=== PATIENT | female | born 1990 | race Caucasian/White ===

== ENCOUNTER 2016-05-28 00:10 | Inpatient (IN) | payer OTHER ==
[~2016-05-28] VITALS: Ht 162.6 cm; Wt 75.7 kg
[~2016-05-28 00:10] MED LIST: FES300 PO; IBUP-1152 PO
[2016-05-28] MEDS: Misoprostol 25 mCg/0.25 Tablet VAGINAL SCH ×4 (08:57→20:35)
[2016-05-28] MEDS ORDERED: Lactated Ringer's 1,000 ML IV PRN (09:04)
[2016-05-28] MEDS ORDERED: Oxytocin 10 Unit/mL Inj IM PRN (09:05)
[2016-05-28] MEDS ORDERED: Sodium Chloride LOK Flush 10 mL Syringe IVFLUSH PRN (09:05)
[2016-05-28] MEDS ORDERED: Carboprost 250 mCg/mL Inj IM PRN (09:05)
[2016-05-28] MEDS ORDERED: Methylergonovine 0.2 mg/mL Inj IM PRN (09:05)
[2016-05-28] MEDS ORDERED: Hemorrhage Kit, Post Partum XX ONE ×2 (09:05→18:25)
[2016-05-28] MEDS ORDERED: Oxytocin 30 Units/500 mL LR 30 UNITS in IV Premix 1 EACH IV PRN (09:05)
[2016-05-28 09:25] LABS: Mean Corpuscular Hemoglobin 25.9 pg (27.0-35.0); Mean Corpuscular Volume 82.2 fL (81-100)
--- NOTE | 2016-05-28 10:58 | PCM.HPOB ---
Subjective Date of Service: May 28, 2016 Referring Provider: Admitting Physician: Eleanor Luevano MD Primary Care Physician: Eleanor Luevano MD Attending Physician: Eleanor Luevano MD Chief Complaint Post dates induction. History of Present History of Present Illness 40 and 5/7 weeks without onset of spontaneous labor. Request induction. Cervix is favorable. OB History: (3), Para, Term, (1), Living (1) Obstetrical Complications: None Past Medical History Obstetrical History: 18 min pushing with term vaginal delivery three years ago. During current has had hyperreflexia without preeclampsia. Hx Tobacco Use: No Smoking Status: Unknown if Ever Smoker Hx Alcohol Use: No Hx Substance Use: No Past Family History Living Arrangement: with Family Genetic Screening/Counseling Genetic Screening/Counseling: Unknown (Not found. Possibly not done.) Baby father-had child w defect: No Review of Systems Constitutional: Y: Change of appitite, Chills, Dizziness, Fever, Malaise, Other , Pain, Sweats, Weakness, Weight loss Eyes: Denies: Blurred Vision, Conjunctive Inflammation, Double Vision, Eyelid Inflammation, Other, Pain, Redness, Vision Changes ENT: Denies: Dental Problems, Dysphagia, Ear Discharge, Ear Pain, Hoarseness, Membranes Dry, Nasal Congestion, Nose Discharge, Nose Pain, Other, Throat Pain, Tinnitus, Ulcers/Sores in Mouth Cardiovascular: Denies: Chest Pain, Edema, Orthopnea, Other, Palpitations, SOB while laying flat Respiratory: Denies: Cough, Cough with bloody sputum, Other, Pleuritic Chest Pain, Pleuritic Chest Pain, SOB with Exertion, Sputum, Wheezing Gastrointestinal: Reports: Abdominal Pain, Denies: Black tarry stools, Blood in stool (red), Change in Appetite, Constipation, Diarrhea, Epigastric pain, Heartburn, Nausea, Other, Use of Laxatives, Vomiting Genitourinary: Denies: Anuria, Change in Frequency, Dysuria, Hematuria, Incontinence, Nocturia, Other, Retention Musculoskeletal: Denies: Back Pain, Deformity, Limitation of Function, Neck Pain, Other, Redness, Shoulder Pain, Swelling Skin/Breasts: Denies: Bruising, Discharge, Dry or Flakiness, Jaundice, Lesions , Masses, Mastalgia, Other, Rash, Scars, Ulcers Skin: Denies: Bruising, Dry or Flakiness, Jaundice, Lesions, Other, Rash, Scars , Ulcers Neurological: Denies: Change in Speech, Confusion, Dizziness, Incoordination, Numbness, Other, Seizures, Somnolence, Tremors, Weakness Psychologic: Denies: Agitation, Anxious, Apprehensive, Depression, Insomnia, Instability, Nervousness, Other Endocrine: Denies: Blood Glucose Review, Change in Appitite, Diaphoresis, Excessive Thirst, Intolerent to Heat/Cold, Other, Recent A1C, Urinating frequently Hematologic: Denies: Abnormal bleeding, Adenopathy, Bruising, Other Medications Home medications vitamins. Allergy Coded Allergies: Amoxicillin (Verified Allergy, 10/28/12) Exam Vital Signs Exam heart tones 130s -140s and reactive. Constitutional: Well-developed, Well-nourished, Normal habitus Lungs: Clear to Auscultation Heart: Regular Rate/Rhythm, No Murmurs/Rubs/Gallops Abdomen: Gravid Lymphatic: Normal: Neck Palpation of Nodes Extremities: No Edema Neurological/Psychiatric: Alert, Oriented X3, Cooperative Neuro: Reflexes 2+, Normal Speech Hyper reflexive DTR: RT Low Extremity, LT Low Extremity Gynecologic: Normal: Cervix (2cm, 70% effaced, -2 station, head well applied) Labs/Diagnostics Maternal Blood Type: O (negative) Hx Rho(D) Immune Globulin: No Group B Strep Results: Negative Previous Infant with GBS: No Rubella: Immune Additional Information Positive chlamydia treated. Repeat negative. OB Intrapartum Assessment/Plan Assessment Post dates induction based on 15week ultrasound. Doing well with rapid onset of contractions q2-3min after single dose of cytotec. Plan epidural. Expectant management. Eleanor Luevano MD May 28, 2016 10:58
[2016-05-28] MEDS ORDERED: Lactated Ringer's 500 ML IV ONE (11:48)
[2016-05-28] MEDS ORDERED: Lactated Ringer's 1,000 ML IV SCH (11:48)
[2016-05-28] MEDS ORDERED: Ondansetron 2 mg/mL 2 mL Inj IVPUSH PRN (11:50)
[2016-05-28] MEDS ORDERED: fentaNYL 2 mCg/mL-Bupiv 0.125% 100 ML EPIDURAL SCH (11:50)
[2016-05-28] MEDS ORDERED: Atropine 1 mg/10 mL (Code) Syringe IVPUSH PRN (11:50)
[2016-05-28] MEDS ORDERED: EPHEDrine Sulfate 50 mg/mL Inj IVPUSH PRN (11:50)
[2016-05-28] MEDS: Sodium Chloride LOK Flush 10 mL Syringe IVFLUSH SCH (16:30)
--- NOTE | 2016-05-28 16:30 | PCM.HPANE ---
Patient Data Date of Service: May 28, 2016 Surgeon Admitting Provider:Eleanor Luevano MD Attending Provider:Eleanor Luevano MD Primary Care Physician:Eleanor Luevano MD Other Provider: Reason for Visit Induction For Post Date INDUCTION FOR POST DATE Ht/WT & BMI Height (Centimeters): 162 Weight (Kilograms): 75.7 Body Mass Index 28.7 Allergies Coded Allergies: Amoxicillin (Verified Allergy, 10/28/12) Diabetes History Hx Diabetes?: No MRSA MRSA: No Medications Hypertension Medication: No Home Meds Incl Beta Leonidas: No Active Scripts IBUPROFEN-Expunged Drug, Do Not Renew! 800 Mg [id number] Mg PO Q6H 60 Days Ref 0 If needed for pain Prov:Eleanor Luevano MD 10/29/12 Ferrous Sulfate-Expunged Drug, Do Not Renew! (Feosol-Expunged Drug, Do Not Renew !)325 Mg [id number] Mg PO DAILY 60 Days Ref 0 Prov:Eelanor Luevano MD 10/29/12 History History of ENT Problems?: No Hx of Heart Problems?: No Hx of Respiratory Problem?: No Hx Neurologic Problems?: No Hx of GI Problems?: No Hx of Problems?: No HX of Peritoneal Dialysis: No Female Hx: Positive for:: Currently Hx Musculoskeletal Problems?: No Hx of Psycho/Social Problems?: No Hx Surgeries?: No Hx Any Other Health Problems?: No Hx Diabetes: No Hx Alcohol Use: NoHx Substance Use: No Smoking Status: Unknown if Ever Smoker Stop/Bang Treated for Sleep Apnea?: No Do You Have a CPAP Machine?: No JONI Risk Assessment: Low Risk, <3 Yes Risk Assessment Category Category 1A: Patient has history of documented sleep apnea, and HAS NOT received any narcotic, sedative or anesthesia administration during this stay. Category 1B: Patient has history of documented sleep apnea, and HAS received any narcotic , sedative or anesthesia administration during this stay Category 2: Patient has SUSPECTED Obstructive Sleep Apnea, and HAS received any narcotic , sedative or anesthesia administration during this stay. Category 3: Patient has SUSPECTED Obstructive Sleep Apnea and HAS NOT received narcotic, sedative or anesthesia administration during this stay. Category 4: Outpatient in Procedural Areas with known sleep apnea or who screen positive for High Risk via the STOP/BANG questionnaire. Exam Exam Vital Signs See OB chart. Vitals reviewed and charted on anesthetic record General Appearance: Alert, Oriented X3 HEENT/AIRWAY: MP 1, Neck Movement (Wide), Mouth Opening (Full) Lungs: Clear to Auscultation, Normal Air Movement Heart: Regular Rate/Rhythm, Normal S1, Normal S2 Meds/Labs/Diagnostics Admission Meds Current Medications Misoprostol (Cytotec) 25 mcg Q4H VAGINAL Last administered on 05/28/16t 08:57; Start 05/28/16 at 08:35 Labs Test 05/28/16 08:40 White Blood Count 10.1th/mm3 (3.8-10.1) Red Blood Count 3.94mil/mm3 (3.90-5.20) Hemoglobin 10.2g/dL (12.0-15.6) Hematocrit 32.4% (35.0-46.0) Mean Corpuscular Volume 82.2fL (81-100) Mean Corpuscular Hemoglobin 25.9pg (27.0-35.0) Mean Corpuscular Hemoglobin Concent 31.5% (32.0-37.0) Red Cell Distribution Width 15.2% (12.3-15.4) Platelet Count 256bil/L (150-400) Plan Impression Patient chart reviewed, patient interviewed and anesthestic plan with risks, benefits, and alternatives discussed, and informed consent obtained. NPO Status: Full ASA Physical Status: ASA2 Mod Systemic Disease Anesthetic Plan: Epidural Bene/Risks/Altern/Consents: Yes HP Complete Prior to Induction: Yes Ean Zuñiga MD May 28, 2016 11:48
[2016-05-28] MEDS: Lactated Ringer's 1,000 ML IV SCH (18:21)
[2016-05-28] MEDS ORDERED: HYDROcodone-APAP 5-325 mg Tablet PO PRN (18:25)
--- NOTE | 2016-05-28 18:31 | PCM.OBVAG ---
Vaginal Delivery Date of Service May 28, 2016 Pre Operative Diagnosis Pre Operative Diagnosis Post dates 40 and 5/7 Post Operative Diagnosis Post Operative Diagnosis Cytotec induced vaginal delivery. Procedure Obstetical Procedure: Normal Spontaneous Vaginal Delivery Extension Educator/Stave Log Cut Off Saw Operator Provider and Stave Log Cut Off Saw Operator: Messi Luevano MD Indication for Procedure Induction: Progressed normally through labor Findings Obstetrical Findings: [place] (Female), Cord (3 Vessel), Presentation (Vertex) , Placenta (Intact/Normal) Analgesia/Medications Obstetrical Anesthesia: Epidural Procedure Details Procedure Details Reached complete approximately 9 hours after single dose induction cytotec. ROM approximately 3 hours before delivery. Clear fluid. Pushed for approx 15 minutes. Baby was delivered to staffs care on mother's chest. Baby was vigorous. Cord was clamped and cut after 1 min. Placenta delivered 5 minutes later with gentle tugging intact. 3 vessel. No perineal tear. EBL of 250ml. Manual exam confirmed uterine contraction. Post Procedure Plan Post delivery Condition: Mom stable, Baby stable to nursery Eleanor Luevano MD May 28, 2016 18:31
[2016-05-28] MEDS ORDERED: LANOlin HPA 7 Gm Ointment TOPICAL PRN (22:10)
[2016-05-28] MEDS ORDERED: Witch Hazel-Glycerin Pads TOPICAL PRN (22:10)
[2016-05-28] MEDS ORDERED: Benzocaine (Dermoplast) 20% 60 Gm Spray TOPICAL PRN (22:10)
--- NOTE | 2016-05-29 04:51 | PCM.ANEP1 ---
Post Anesthesia Phase 1 PACU Phase 1 Assessment Date of Service: May 28, 2016 Vital Signs See OB vitals charting Anesthetic Administered: Epidural Level of Alertness: Awake, talking LAST's with Equal Strength: No Pain: Yes Pain Scale Score: 3 Lungs: Normal Air Movement Ean Zuñiga MD May 29, 2016 04:51
--- NOTE | 2016-05-29 04:52 | PCM.ANEP2 ---
Post Anesthesia Evaluation ASA/CMS Post Anesthesia Date of Service: May 29, 2016 VS in Patient's Normal Range?: Yes Resp Stable; Airway Patent?: Yes CV Function & Hydration Stable: Yes Mental Status Recovered?: Yes Pain control Satisfactory?: Yes N/V Control Satisfactory?: Yes Ean Zuñiga MD May 29, 2016 04:52
[2016-05-29 06:58] LABS: Mean Corpuscular Hemoglobin 25.9 pg (27.0-35.0); Mean Corpuscular Volume 82.5 fL (81-100)
[2016-05-29] MEDS: Sodium Chloride LOK Flush 10 mL Syringe IVFLUSH SCH (08:30)
[2016-05-29] MEDS: Lactated Ringer's 1,000 ML IV SCH (09:51)
--- NOTE | 2016-05-29 10:50 | PCM.DIMED ---
Discharge Instructions Date of Service May 29, 2016 Dates of Hospitalization May 28, 2016 at 07:06 Discharge Diagnosis Discharge Diagnosis Cytotec induced Vaginal Delivery at 40 5/7 weeks Diet No restrictions Activity No restrictions Call your provider Fever or Chills, Shortness of breath, Bleeding, Vomitting, Excessive diarrhea, Weakness (unilateral) Patient Instructions Follow-up with PCP in: 3 weeks Provider: Eleanor Luevano MD, H Edwin MD May 29, 2016 10:50
[2016-05-29] MEDS ORDERED: Benzocaine TOPICAL (10:52)
[2016-05-29] MEDS ORDERED: Lanolin TOPICAL (10:52)
[2016-05-29] MEDS ORDERED: IBUP-1827 PO (10:52)
[2016-05-29] MEDS ORDERED: HYDR-4003 PO (10:52)
[2016-05-29 11:28] VITALS: BP 93/50; PULSE 67
--- NOTE | 2016-05-30 11:00 | PCM.DC.OB ---
Obstetrical Discharge Summary Date of Service May 29, 2016 Date of hospital admission May 28, 2016 at 07:06 Date of Discharge: May 29, 2016 Providers Admitting Physician: Eleanor Luevano MD Primary Care Physician: Eleanor Luevano MD Attending Physician: Eleanor Luevano MD Diagnosis at Time of Discharge S/P Cytotec induced Vaginal Delivery at 40 5/7 weeks EGA Problems: Invasive procedures Reached complete approximately 9 hours after single dose induction cytotec. ROM approximately 3 hours before delivery. Clear fluid. Pushed for approx 15 minutes. Baby was delivered to staffs care on mother's chest. Baby was vigorous. Cord was clamped and cut after 1 min. Placenta delivered intact about 5 minutes later. EBL 250 ml. Brief History and Physical: 40 and 5/7 weeks without onset of spontaneous labor. Request induction. Cervix is favorable. Hospital Course: Hgb dropped to 9.6. Minimal Lochia. Doing very well. Heart: RRR without murmur Lungs: CTAB Abdomen: Soft, NT, BS +, Uterus contracted and mildly tender. Ext: No ankle edema. Chronic hyperreflexia unchanged. ([Benzocaine]) 1 SPRAY/GM SPRAY 1 SPRAY TOPICAL PRN PRN PRN Discomfort Prescribed by: CARMEN LUEVANO MD ([Lanolin]) 2 APPLIC/GM OINT 1 APPLIC TOPICAL PRN PRN PRN Discomfort Prescribed by: CARMEN LUEVANO MD Ferrous Sulfate-Expunged Drug, Do Not Renew! (Feosol-Expunged Drug, Do Not Renew !) 325 Mg Tablet 325 MG PO DAILY Prescribed by: CARMEN LUEVANO MD Hydrocodone-Acetaminophen 5-325 mg (Hydrocodone-Acetaminophen 5-325 mg) 1 Each Tablet 1-2 TABLET PO Q4H PRN PRN For Pain Prescribed by: CARMEN LUEVANO MD IBUPROFEN-Expunged Drug, Do Not Renew! (IBUPROFEN-Expunged Drug, Do Not Renew!) 800 Mg Tablet 800 MG PO Q6H If needed for pain Prescribed by: CARMEN LUEVANO MD Ibuprofen (Ibuprofen) 600 Mg Tablet 600 MG PO Q6H PRN PRN For Mild Pain Prescribed by: CARMEN LUEVANO MD Disposition Home tonight. Follow-up plan See Dr. Luevano prn and in 2-4 weeks. Discharge Diet: No restrictions Discharge Activity-General: Pelvic Rest for 6 weeks, Try not to overdue, Balance rest and activity, Activity as pain allows, Activity as energy allows, No lifting >15 pounds for 2 weeks Eleanor Luevano MD May 30, 2016 11:00
== END 2016-05-29 13:25 | disposition home or self-care (01) | DRG 775 ==
LOC: FBC 07:06
PROVIDERS: ADMIT Family Medicine; ATTEND Family Medicine
PROC: 10E0XZZ Delivery of Products of Conception, External Approach (ICD-10-PCS; principal; 2016-05-28)
PROC: 3E0P7GC Introduction of Other Therapeutic Substance into Female Reproductive, Via Natural or Artificial Opening (ICD-10-PCS; 2016-05-28)
DX: O48.0 Post-term pregnancy (principal); Z3A.40 40 weeks gestation of pregnancy; Z37.0 Single live birth